=== PATIENT | male | born 1965 | race Hispanic/Latino ===

== ENCOUNTER 2022-06-29 00:25 | Inpatient (IN) | payer MEDICAID, OTHER ==
[~2022-06-29] VITALS: Ht 165.1 cm; Wt 99.2 kg
[~2022-06-29 00:25] MED LIST: AZIT500T2 PO; DEXA4 PO; METO25 PO; POLY17PO4 PO; TRAM50TA4 PO
[2022-06-29] MEDS ORDERED: FUROSEMIDE 40MG VIAL IV ONE ×2 (01:00→14:00)
[2022-06-29 01:03] LABS: MEAN CORPUSCULAR HGB CONC 33.5 g/dL (32.0-36.0); MEAN CORPUSCULAR VOLUME 98.5 fL (79-99); NUCLEATED RED BLOOD CELLS 2.8 % (0.0-0.19); PLATELET COUNT (AUTO) 92 K/uL (130-400); RED BLOOD CELL COUNT(AUTO) 2.06 MIL/uL (4.50-6.20); RED CELL DISTRIBUTION WIDTH 19.6 % (11.0-15.5); WHITE BLOOD COUNT (AUTO) 4.2 K/uL (4.8-10.8)
[2022-06-29 01:11] LABS: HEMATOCRIT 20.3 % (42-54)
[2022-06-29 01:18] LABS: CREATININE 1.4 mg/dL (0.5-1.5); POTASSIUM 3.8 mmol/L (3.5-5.1)
[2022-06-29 01:23] LABS: ALBUMIN 4.4 g/dL (3.5-5.0); B-TYPE NATRIURETIC PEPTIDE 593 pg/mL (0-100); TOTAL PROTEIN, SERUM 7.5 g/dL (6.0-8.3)
[2022-06-29 02:32] LABS: APPEARANCE,URINE CLEAR (CLEAR); BILIRUBIN,URINE NEGATIVE (NEGATIVE); COLOR,URINE YELLOW (YELLOW); GLUCOSE, URINE (UA) NEGATIVE (NEGATIVE); KETONES,URINE NEGATIVE (NEGATIVE); LEUKOCYTE ESTERASE ,URINE NEGATIVE Leu/uL (NEGATIVE); NITRATE,URINE NEGATIVE (NEGATIVE); OCCULT BLOOD,URINE NEGATIVE (NEGATIVE); PH,URINE 5.5 (5.0-8.0); PROTEIN,URINE 20 mg/dL (NEGATIVE); UROBILINOGEN,URINE 0.2 mg/dL (0.2-1.0)
[2022-06-29 02:58] LABS: ABG OXYGEN SATURATION 87.9 % (95.0-99.0); ABG PCO2 34 mmHg (35-48)
[2022-06-29] MEDS ORDERED: IPRATROPIUM/ALBUTEROL SULFATE 3 ML SOLUTION IH ONE (03:00)
[2022-06-29] MEDS ORDERED: ACETAMINOPHEN 325 MG TAB PO PRN ×2 (03:30)
[2022-06-29] MEDS ORDERED: MORPHINE 4 MG SYG IV PRN (03:30)
[2022-06-29] MEDS ORDERED: ONDANSETRON 4MG INJ IV PRN (03:30)
[2022-06-29] MEDS ORDERED: DEXAMETHASONE SOD PHOSPHATE 4 MG/ML 1ML VIAL IV SCH (03:30)
[2022-06-29] MEDS ORDERED: CEFTRIAXONE 1G VIAL IV SCH (03:30)
[2022-06-29] MEDS ORDERED: ERGOCALCIFEROL (VITAMIN D2) 50,000 UNIT CAPSULE PO ONE (03:30)
[2022-06-29] MEDS ORDERED: ASPIRIN 81MG CHEW TAB PO ONE (03:30)
[2022-06-29] MEDS ORDERED: MORPHINE 2 MG SYG IV PRN (03:30)
[2022-06-29] MEDS: DOXYCYCLINE 100MG+NS 250ML 250 ML IV SCH ×2 (05:21→14:40)
[2022-06-29] MEDS ORDERED: PHARMACY COMMUNICATION**REMDESIVIR MISC SCH (05:30)
[2022-06-29] MEDS: IPRATROPIUM/ALBUTEROL SULFATE 3 ML SOLUTION IH SCH ×6 (06:00→19:59)
[2022-06-29 07:32] LABS: HEMATOCRIT 21.9 % (42-54)
[2022-06-29 07:40] LABS: HEMOGLOBIN A1C 5.4 % (4.0-6.0)
[2022-06-29 08:06] LABS: % IRON SATURATION 23.5 % (30-44)
[2022-06-29] MEDS: ZINC SULFATE 220 CAPSULE PO SCH (09:00)
[2022-06-29] MEDS ORDERED: PANTOPRAZOLE 40 MG/VIAL IVP SCH (09:00)
[2022-06-29] MEDS ORDERED: ENOXAPARIN SODIUM 40 MG/0.4 ML SYRINGE SQ SCH (09:00)
[2022-06-29] MEDS: ASCORBIC ACID 500 MG TAB PO SCH (09:00)
[2022-06-29] MEDS ORDERED: ASPIRIN 81MG CHEW TAB PO SCH (09:00)
[2022-06-29] MEDS: FAMOTIDINE 20MG VIAL IV SCH ×2 (09:00→20:56)
[2022-06-29] MEDS: CEFEPIME HCL 2 GM VIAL IVPB SCH ×2 (09:00→20:55)
[2022-06-29] MEDS: SOLU-MEDROL 125MG VIAL IVP SCH ×3 (10:00→21:10)
[2022-06-29] MEDS: INSULIN HUMULIN R 100 UNIT/ML 3ML SQ SCH ×3 (11:30→21:09)
[2022-06-29] MEDS: FUROSEMIDE 20MG VIAL IV SCH ×2 (11:30→22:45)
[2022-06-29 12:18] LABS: BASOPHILS % (AUTO) 0.4 % (0.0-5.0); EOSINOPHILS % (AUTO) 0.2 % (0.0-8.0); HEMATOCRIT 21.9 % (42-54); LYMPHOCYTES % (AUTO) 23.1 % (21.0-51.0); MEAN CORPUSCULAR HEMOGLOBIN 31.3 pg (27.0-33.0); MEAN CORPUSCULAR VOLUME 97.8 fL (79-99); MONOCYTES % (AUTO) 7.9 % (3.0-13.0); NEUTROPHILS % (AUTO) 61.4 % (40.0-77.0); PLATELET COUNT (AUTO) 91 K/uL (130-400); RED BLOOD CELL COUNT(AUTO) 2.24 MIL/uL (4.50-6.20); RED CELL DISTRIBUTION WIDTH 21.3 % (11.0-15.5); WHITE BLOOD COUNT (AUTO) 4.6 K/uL (4.8-10.8)
[2022-06-29 12:39] LABS: % IRON SATURATION 28.9 % (30-44)
[2022-06-29 13:00] VITALS: BP 143/76
[2022-06-29 13:10] LABS: CRP QUANTITATIVE 105.2 mg/L (0.00-9.0)
[2022-06-29 13:26] LABS: ERYTHROCYTE SEDIMENTATION RATE 101 MM/HR (0-20)
[2022-06-29 16:00] VITALS: BP 156/81
[2022-06-29] MEDS ORDERED: BUDESONIDE 0.5 MG/2 ML INH IH ONE (18:18)
[2022-06-29] MEDS ORDERED: HYDR-4060 PO (18:42)
[2022-06-29 19:52] VITALS: BP 139/76
[2022-06-29] MEDS: PANTOPRAZOLE 40 MG/VIAL IVP SCH (20:55)
[2022-06-29] MEDS ORDERED: IRON SUCROSE COMPLEX 300 MG in 0.9% NACL 250ML 250 ML IV SCH (21:00)
[2022-06-29] MEDS: HYDROCODONE/ACETAMINOPHEN 5/325 MG TAB PO PRN (22:49)
[2022-06-29 23:06] VITALS: BP 137/69
[2022-06-30] MEDS: IPRATROPIUM/ALBUTEROL SULFATE 3 ML SOLUTION IH SCH ×8 (00:29→20:02)
[2022-06-30] MEDS: DOXYCYCLINE 100MG+NS 250ML 250 ML IV SCH ×2 (03:00→15:59)
[2022-06-30 03:39] VITALS: BP 129/70
[2022-06-30] MEDS: SOLU-MEDROL 125MG VIAL IVP SCH ×4 (03:46→21:06)
[2022-06-30 05:19] LABS: BASOPHILS % (AUTO) 0.3 % (0.0-5.0); HEMATOCRIT 21.8 % (42-54); LYMPHOCYTES % (AUTO) 12.1 % (21.0-51.0); MEAN CORPUSCULAR HEMOGLOBIN 31.7 pg (27.0-33.0); MEAN CORPUSCULAR HGB CONC 32.1 g/dL (32.0-36.0); MEAN CORPUSCULAR VOLUME 98.6 fL (79-99); MONOCYTES % (AUTO) 12.3 % (3.0-13.0); NEUTROPHILS % (AUTO) 67.4 % (40.0-77.0); NUCLEATED RED BLOOD CELLS 2.1 % (0.0-0.19); PLATELET COUNT (AUTO) 88 K/uL (130-400); RED BLOOD CELL COUNT(AUTO) 2.21 MIL/uL (4.50-6.20); RED CELL DISTRIBUTION WIDTH 21.2 % (11.0-15.5); WHITE BLOOD COUNT (AUTO) 3.9 K/uL (4.8-10.8)
[2022-06-30 05:43] LABS: CREATININE 1.3 mg/dL (0.5-1.5); CRP QUANTITATIVE 68.4 mg/L (0.00-9.0); PHOSPHORUS 2.2 mg/dL (2.5-4.9); POTASSIUM 3.8 mmol/L (3.5-5.1)
[2022-06-30] MEDS: INSULIN HUMULIN R 100 UNIT/ML 3ML SQ SCH ×4 (05:54→22:04)
[2022-06-30 08:00] VITALS: BP 153/72
[2022-06-30] MEDS ORDERED: INSULIN GLARGINE 100 UNITS/ML 10 ML VIAL SQ SCH (09:00)
[2022-06-30] MEDS: CEFEPIME HCL 2 GM VIAL IVPB SCH ×2 (09:45→21:06)
[2022-06-30] MEDS: ASCORBIC ACID 500 MG TAB PO SCH (09:45)
[2022-06-30] MEDS: ZINC SULFATE 220 CAPSULE PO SCH (09:45)
[2022-06-30] MEDS: PANTOPRAZOLE 40 MG/VIAL IVP SCH ×2 (09:45→21:06)
[2022-06-30 12:00] VITALS: BP 130/59
[2022-06-30] MEDS: FUROSEMIDE 20MG VIAL IV SCH ×2 (12:29→23:15)
[2022-06-30 16:00] VITALS: BP 135/74
[2022-06-30 19:00] VITALS: BP 132/70
[2022-06-30 23:00] VITALS: BP 133/69
[2022-07-01] MEDS: IPRATROPIUM/ALBUTEROL SULFATE 3 ML SOLUTION IH SCH ×7 (00:12→23:37)
[2022-07-01] MEDS: SOLU-MEDROL 125MG VIAL IVP SCH ×3 (03:04→15:42)
[2022-07-01] MEDS: DOXYCYCLINE 100MG+NS 250ML 250 ML IV SCH ×2 (03:04→15:42)
[2022-07-01 05:51] LABS: BASOPHILS % (AUTO) 0.3 % (0.0-5.0); HEMATOCRIT 21.7 % (42-54); LYMPHOCYTES % (AUTO) 10.8 % (21.0-51.0); MEAN CORPUSCULAR HEMOGLOBIN 31.8 pg (27.0-33.0); MEAN CORPUSCULAR HGB CONC 32.3 g/dL (32.0-36.0); MEAN CORPUSCULAR VOLUME 98.6 fL (79-99); MONOCYTES % (AUTO) 11.1 % (3.0-13.0); NUCLEATED RED BLOOD CELLS 1.6 % (0.0-0.19); PLATELET COUNT (AUTO) 94 K/uL (130-400); RED CELL DISTRIBUTION WIDTH 20.8 % (11.0-15.5); WHITE BLOOD COUNT (AUTO) 3.8 K/uL (4.8-10.8)
[2022-07-01 06:00] VITALS: BP 126/71
[2022-07-01 06:14] LABS: ALBUMIN 4.1 g/dL (3.5-5.0); CREATININE 1.4 mg/dL (0.5-1.5); CRP QUANTITATIVE 33.7 mg/L (0.00-9.0); MAGNESIUM 2.4 mg/dL (1.80-2.40); TOTAL PROTEIN, SERUM 7.6 g/dL (6.0-8.3)
[2022-07-01] MEDS: INSULIN HUMULIN R 100 UNIT/ML 3ML SQ SCH ×4 (06:17→21:27)
[2022-07-01 07:30] VITALS: BP 149/76
[2022-07-01] MEDS ORDERED: INSULIN GLARGINE 100 UNITS/ML 10 ML VIAL SQ SCH (09:00)
[2022-07-01] MEDS: CEFEPIME HCL 2 GM VIAL IVPB SCH ×2 (09:55→21:04)
[2022-07-01] MEDS: PANTOPRAZOLE 40 MG/VIAL IVP SCH ×2 (09:55→21:04)
[2022-07-01] MEDS: ZINC SULFATE 220 CAPSULE PO SCH (09:55)
[2022-07-01] MEDS: ASCORBIC ACID 500 MG TAB PO SCH (09:55)
[2022-07-01 11:00] VITALS: BP 130/66
[2022-07-01] MEDS: HYDROCODONE/ACETAMINOPHEN 5/325 MG TAB PO PRN (15:58)
[2022-07-01 16:00] VITALS: BP 117/58
[2022-07-01] MEDS ORDERED: SOLU-MEDROL 125MG VIAL IVP SCH ×2 (18:00→20:30)
[2022-07-01 20:51] VITALS: BP 137/73
[2022-07-01] MEDS: INSULIN GLARGINE 100 UNITS/ML 10 ML VIAL SQ SCH (21:27)
[2022-07-02 00:06] VITALS: BP 133/68
[2022-07-02] MEDS: HYDROCODONE/ACETAMINOPHEN 5/325 MG TAB PO PRN ×2 (00:50→09:34)
[2022-07-02] MEDS: DOXYCYCLINE 100MG+NS 250ML 250 ML IV SCH ×2 (03:44→14:09)
[2022-07-02 04:19] VITALS: BP 135/74
[2022-07-02 05:23] LABS: BASOPHILS % (AUTO) 0.3 % (0.0-5.0); HEMATOCRIT 22.4 % (42-54); LYMPHOCYTES % (AUTO) 9.4 % (21.0-51.0); MEAN CORPUSCULAR HEMOGLOBIN 31.6 pg (27.0-33.0); MEAN CORPUSCULAR HGB CONC 32.1 g/dL (32.0-36.0); MEAN CORPUSCULAR VOLUME 98.2 fL (79-99); MONOCYTES % (AUTO) 8.5 % (3.0-13.0); NEUTROPHILS % (AUTO) 77.1 % (40.0-77.0); NUCLEATED RED BLOOD CELLS 4.7 % (0.0-0.19); PLATELET COUNT (AUTO) 92 K/uL (130-400); RED BLOOD CELL COUNT(AUTO) 2.28 MIL/uL (4.50-6.20); RED CELL DISTRIBUTION WIDTH 20.2 % (11.0-15.5); WHITE BLOOD COUNT (AUTO) 3.2 K/uL (4.8-10.8)
[2022-07-02] MEDS: SOLU-MEDROL 125MG VIAL IVP SCH ×3 (05:33→21:41)
[2022-07-02 05:37] LABS: CREATININE 1.3 mg/dL (0.5-1.5); CRP QUANTITATIVE 16.3 mg/L (0.00-9.0); PHOSPHORUS 2.4 mg/dL (2.5-4.9)
[2022-07-02] MEDS: IPRATROPIUM/ALBUTEROL SULFATE 3 ML SOLUTION IH SCH ×7 (06:00→23:27)
[2022-07-02] MEDS: INSULIN HUMULIN R 100 UNIT/ML 3ML SQ SCH ×4 (06:16→21:18)
[2022-07-02 08:00] VITALS: BP 142/71
[2022-07-02] MEDS: ASCORBIC ACID 500 MG TAB PO SCH (09:20)
[2022-07-02] MEDS: ZINC SULFATE 220 CAPSULE PO SCH (09:20)
[2022-07-02] MEDS: FUROSEMIDE 20 MG TABLET PO SCH (09:20)
[2022-07-02] MEDS: CEFEPIME HCL 2 GM VIAL IVPB SCH ×2 (09:20→20:25)
[2022-07-02] MEDS: PANTOPRAZOLE 40 MG/VIAL IVP SCH ×2 (09:20→20:25)
[2022-07-02] MEDS: INSULIN GLARGINE 100 UNITS/ML 10 ML VIAL SQ SCH ×2 (09:27→21:20)
[2022-07-02 12:00] VITALS: BP 142/72
[2022-07-02 16:00] VITALS: BP 133/62
[2022-07-02 19:00] VITALS: BP 152/69
[2022-07-03] VITALS: BP 120/57
[2022-07-03] MEDS: DOXYCYCLINE 100MG+NS 250ML 250 ML IV SCH (03:09)
[2022-07-03 03:30] VITALS: BP 135/62
[2022-07-03 04:00] VITALS: BP 135/62
[2022-07-03 05:12] LABS: HEMATOCRIT 22.5 % (42-54); LYMPHOCYTES % (AUTO) 10.3 % (21.0-51.0); MEAN CORPUSCULAR HEMOGLOBIN 31.7 pg (27.0-33.0); MEAN CORPUSCULAR VOLUME 99.1 fL (79-99); MONOCYTES % (AUTO) 12.1 % (3.0-13.0); NEUTROPHILS % (AUTO) 72.5 % (40.0-77.0); NUCLEATED RED BLOOD CELLS 14.5 % (0.0-0.19); PLATELET COUNT (AUTO) 89 K/uL (130-400); RED BLOOD CELL COUNT(AUTO) 2.27 MIL/uL (4.50-6.20); RED CELL DISTRIBUTION WIDTH 19.8 % (11.0-15.5); WHITE BLOOD COUNT (AUTO) 3.3 K/uL (4.8-10.8)
[2022-07-03 05:39] LABS: POTASSIUM 3.9 mmol/L (3.5-5.1)
[2022-07-03] MEDS: SOLU-MEDROL 125MG VIAL IVP SCH (05:52)
[2022-07-03] MEDS: IPRATROPIUM/ALBUTEROL SULFATE 3 ML SOLUTION IH SCH ×4 (06:00→11:04)
[2022-07-03 06:08] LABS: BAND NEUTROPHILS % (MANUAL) 1 % (0-2); LYMPHOCYTES % (MANUAL) 9 % (22-44); MONOCYTES % (MANUAL) 9 % (2-9); REACTIVE LYMPHOCYTES 1 % (0-0); SEGMENTED NEUTROPHILS % 80 % (40-70)
[2022-07-03 06:09] LABS: MAN.DIFF COMMENT-IMPRESSION MANUAL DIFFERENTIAL; PLATELET MORPHOLOGY COMMENT MARKED DECREASE
[2022-07-03] MEDS: INSULIN HUMULIN R 100 UNIT/ML 3ML SQ SCH ×2 (06:12→12:07)
[2022-07-03 08:00] VITALS: BP 137/73
[2022-07-03] MEDS: INSULIN GLARGINE 100 UNITS/ML 10 ML VIAL SQ SCH (08:32)
[2022-07-03] MEDS: CEFEPIME HCL 2 GM VIAL IVPB SCH (08:40)
[2022-07-03] MEDS: ZINC SULFATE 220 CAPSULE PO SCH (08:48)
[2022-07-03] MEDS: FUROSEMIDE 20 MG TABLET PO SCH (08:48)
[2022-07-03] MEDS: ASCORBIC ACID 500 MG TAB PO SCH (08:48)
[2022-07-03] MEDS: PANTOPRAZOLE 40 MG/VIAL IVP SCH (08:51)
[2022-07-03] MEDS ORDERED: METH4TAB15 PO (10:34)
[2022-07-03 12:00] VITALS: BP 151/79
[2022-07-03] MEDS ORDERED: FURO20TA6 PO ×2 (12:22→15:52)
== END 2022-07-03 15:10 | disposition home or self-care (01) | DRG 177 ==
LOC: EDH 00:25 → EDHIP 00:26 → 4CH 13:00
PROVIDERS: ADMIT Internal Medicine; ATTEND Internal Medicine
PROC: 30233N1 Transfusion of Nonautologous Red Blood Cells into Peripheral Vein, Percutaneous Approach (ICD-10-PCS; principal; 2022-06-29)
DX: U07.1 COVID-19 (principal); I21.A1 Myocardial infarction type 2; J12.82 Pneumonia due to coronavirus disease 2019; I50.33 Acute on chronic diastolic (congestive) heart failure; J96.01 Acute respiratory failure with hypoxia; D61.818 Other pancytopenia; C79.51 Secondary malignant neoplasm of bone; C90.02 Multiple myeloma in relapse; I13.0 Hypertensive heart and chronic kidney disease with heart failure and stage 1 through stage 4 chronic kidney disease, or unspecified chronic kidney disease; I42.0 Dilated cardiomyopathy; Z68.41 Body mass index [BMI] 40.0-44.9, adult; Z20.822 Contact with and (suspected) exposure to COVID-19; E11.22 Type 2 diabetes mellitus with diabetic chronic kidney disease; E11.65 Type 2 diabetes mellitus with hyperglycemia; N18.30 Chronic kidney disease, stage 3 unspecified; D50.9 Iron deficiency anemia, unspecified; G89.29 Other chronic pain; E66.9 Obesity, unspecified; E78.1 Pure hyperglyceridemia; F17.210 Nicotine dependence, cigarettes, uncomplicated; E78.5 Hyperlipidemia, unspecified; I08.1 Rheumatic disorders of both mitral and tricuspid valves; I27.20 Pulmonary hypertension, unspecified; J40 Bronchitis, not specified as acute or chronic; T38.0X5A Adverse effect of glucocorticoids and synthetic analogues, initial encounter; T45.1X5A Adverse effect of antineoplastic and immunosuppressive drugs, initial encounter; Z79.82 Long term (current) use of aspirin; Z79.899 Other long term (current) drug therapy
CPT/HCPCS: 36415; 36600; 71045; 71250; 80048; 80053; 81003; 82270; 82728; 82803; 82948; 83036; 83540; 83550; 83605; 83615; 83735; 83880; 84100; 84145; 84484; 85014; 85018; 85025; 85027; 85045; 85378; 85651; 86140; 86850; 86900; 86901; 86923; 87040; 87635; 87804; 93005; 93306; 93970; 94640; 94660; 94664; C9113; C9803; G0378; J0692; J0696; J1100; J1756; J1815; J1940; J2930; J3490; J7050; P9016

== ENCOUNTER → 2024-02-24 | Outpatient (CLI) | payer SELFPAY ==
[~2024-02-24] MED LIST changes: -AZIT500T2 PO; -DEXA4 PO; +FURO20TA6 PO; +HYDR-4060 PO; +METH4TAB15 PO; -TRAM50TA4 PO
--- NOTE | 2024-02-24 18:00 | HMCSR ---
APPROVED REPORT Bilateral Lower Extremity Venous Study for DVT., Venous Competence. Indications Lower Extremity Edema: Left Vein Imaging CFV (R): Normal flow, augmentation and compression. No evidence of DVT. 11.4mm 1878ms of reflux. SFJ (R): Normal flow, augmentation and compression. No evidence of DVT. FEM (R): Non Compressible, Limited Recanalized flow. Evidence of Acute DVT. POP (R): Normal flow, augmentation and compression. No evidence of DVT. DFV (R): Normal flow, augmentation and compression. No evidence of DVT. PTV (R): Normal flow, augmentation and compression. No evidence of DVT. Peroneals (R): Normal flow, augmentation and compression. No evidence of DVT. CFV (L): Normal flow, augmentation and compression. No evidence of DVT. SFJ (L): Normal flow, augmentation and compression. No evidence of DVT. FEM (L): Non Compressible, Limited Recanalized flow. Evidence of Acute DVT. POP (L): Non Compressible, Limited Recanalized flow. Evidence of Acute DVT. DFV (L): Normal flow, augmentation and compression. No evidence of DVT. PTV (L): Normal flow, augmentation and compression. No evidence of DVT. Peroneals (L): Normal flow, augmentation and compression. No evidence of DVT. Technologist Impression Non compressible with minimal Recanalized flow in the Right SFV, Left SFV and Left Popliteal veins, s uggestive of Acute DVT. Deep venous reflux noted in the RCFV and LCFV. Superficial venous insufficiency in the RGSV at junction and LGSV at junction. RGSV junction 6.4mm 4092ms thigh 2.6mm 0.0ms knee 2.0mm 0.0ms calf 1.7mm 0.0ms RSSV - occluded LGSV junction 7.5mm 878ms thigh 4.1mm 0.0ms knee 2.7mm 0.0ms calf 3.4mm 0.0ms LSSV prox - occluded mid 3.2mm 0.0ms Conclusion Deep venous reflux noted in the RCFV and LCFV. Superficial venous insufficiency in the RGSV at junction and LGSV at junction. No DVT Conclusion Deep venous reflux noted in the RCFV and LCFV. Superficial venous insufficiency in the RGSV at junction and LGSV at junction. No DVT
== END | disposition home or self-care (01) ==
LOC: SHCH 13:03
PROVIDERS: ATTEND Internal Medicine Cardiovascular Disease
DX: I87.2 Venous insufficiency (chronic) (peripheral) (principal); I87.1 Compression of vein
CPT/HCPCS: 93970